=== PATIENT | male | born 1955 | race Caucasian/White ===

== ENCOUNTER 2016-08-08 16:44 | Emergency (ER) | payer SELFPAY ==
[2016-08-08] MEDS ORDERED: HYDROcodone/Acetaminophen 10/325 mg Tablet ONE (17:21)
[2016-08-08] MEDS ORDERED: Indomethacin 25 mg Capsule ONE (17:27)
[2016-08-08] MEDS ORDERED: predniSONE 20 MG TAB ONE (17:27)
[2016-08-08 17:43] LABS: #Basophils 0.1 thou/uL (0.0-0.2); #Eosinphils 0.1 thou/uL (0.0-0.7); #Lymphocytes 2.7 thou/uL (1.20-3.40); #Monocytes 0.9 thou/uL (0.11-0.59); #Neutrophils 4.5 thou/uL (1.40-6.50); %Basophils 1.3 % (0.0-1.0); %Eosinophils 0.9 % (0.0-10.0); %Lymphocytes 32.2 % (21.0-51.0); %Monocytes 11.2 % (0.0-10.0); %Neutrophils 54.3 % (42.0-75.0); Mean Corpuscular HGB CONC 33.8 g/dL (32.0-36.0); Mean Corpuscular Hemoglobin 31.6 pg (27.0-31.0); Mean Corpuscular Volume 93.3 fl (80.0-94.0); Mean Platelet Volume 7.7 fL (7.4-10.4); Platelet Count 221 thou/uL (130-400); RBC Distribution Width 11.7 % (11.5-14.5); Red Blood Cell (RBC) Count 4.43 mill/uL (4.70-6.10); White Blood Cell (WBC) Count 8.3 thou/uL (4.8-10.8)
[2016-08-08 17:59] LABS: CRP (Inflammatory) 2.53 mg/dL (= or < 0.5); Uric Acid 5.4 mg/dL (3.5-7.2)
--- NOTE | 2016-08-08 19:00 | RAD ---
LEFT ELBOW FOUR VIEWS 08/08/16 HISTORY: Joint pain. There is soft tissue prominence in the region of the olecranon. There is soft tissue ossification ne ar the tip of the olecranon and bony cystic change. This would suggest chronic olecranon bursitis an d raises the possibility of chronic osteomyelitis. Clinical correlation is recommended. IMPRESSION: Chronic appearing destructive changes involving the olecranon near the olecranon bursa. 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 An underlying osteomyelitis is not excluded. Clinical correlation is recommended. POS: MAXIMO
== END 2016-08-08 18:43 | disposition home or self-care (01) ==
LOC: MADERS 16:44
DX: M10.9 Gout, unspecified (principal); I10 Essential (primary) hypertension; Z79.899 Other long term (current) drug therapy
CPT/HCPCS: 36415; 84550; 85025; 86140; J7506

== ENCOUNTER 2016-08-29 13:27 | Outpatient (CLI) | payer OTHER ==
[2016-08-29 13:48] LABS: #Basophils 0.1 thou/uL (0.0-0.2); #Eosinphils 0.1 thou/uL (0.0-0.7); #Lymphocytes 2.5 thou/uL (1.20-3.40); #Monocytes 0.8 thou/uL (0.11-0.59); #Neutrophils 4.4 thou/uL (1.40-6.50); %Basophils 1.2 % (0.0-1.0); %Eosinophils 1.3 % (0.0-10.0); %Lymphocytes 31.4 % (21.0-51.0); %Monocytes 10.4 % (0.0-10.0); %Neutrophils 55.6 % (42.0-75.0); Hemoglobin 15.6 g/dL (14.0-18.0); Mean Corpuscular HGB CONC 32.6 g/dL (32.0-36.0); Mean Corpuscular Hemoglobin 31.2 pg (27.0-31.0); Mean Corpuscular Volume 95.9 fl (80.0-94.0); Mean Platelet Volume 8.8 fL (7.4-10.4); Platelet Count 188 thou/uL (130-400); RBC Distribution Width 12.4 % (11.5-14.5); Red Blood Cell (RBC) Count 5.01 mill/uL (4.70-6.10); White Blood Cell (WBC) Count 7.8 thou/uL (4.8-10.8)
[2016-08-29 14:05] LABS: ALT (SGPT) 33 U/L (8-55); AST (SGOT) 29 U/L (5-34); Albumin 4.1 g/dL (3.5-5.0); Alkaline Phosphatase 82 U/L (40-150); Anion Gap 17 mmol/L (10-20); BUN (Urea Nitrogen) 19 mg/dL (8.4-25.7); Bilirubin, Total 0.6 mg/dL (0.2-1.2); Calc. Creatinine Clearance 0 mL/min (70-130); Calcium 9.1 mg/dL (7.8-10.44); Carbon Dioxide 20 mmol/L (22-29); Chloride 106 mmol/L (98-107); Estimated GFR-MDRD 31; Globulin 3.5 g/dL (2.4-3.5); Glucose 136 mg/dL (70-105); Potassium 4.5 mmol/L (3.5-5.1); Protein, Total 7.6 g/dL (6.0-8.3); Sodium 138 mmol/L (136-145)
== END 2016-08-29 13:28 | disposition home or self-care (01) ==
LOC: MADLAB 13:27
DX: Z00.00 Encounter for general adult medical examination without abnormal findings (principal)
CPT/HCPCS: 36415; 80050

== ENCOUNTER 2016-08-29 18:44 | Emergency (ER) | payer SELFPAY ==
[~2016-08-29 18:44] MED LIST: Sodium Chloride 0.9% 1,000 ML BAG ONE
[2016-08-29 19:46] LABS: #Basophils 0.2 thou/uL (0.0-0.2); #Eosinphils 0.2 thou/uL (0.0-0.7); #Lymphocytes 3.5 thou/uL (1.20-3.40); #Monocytes 0.8 thou/uL (0.11-0.59); #Neutrophils 4.8 thou/uL (1.40-6.50); %Basophils 1.6 % (0.0-1.0); %Eosinophils 1.9 % (0.0-10.0); %Lymphocytes 36.8 % (21.0-51.0); %Monocytes 8.3 % (0.0-10.0); %Neutrophils 51.3 % (42.0-75.0); Hemoglobin 16.3 g/dL (14.0-18.0); Mean Corpuscular HGB CONC 34.6 g/dL (32.0-36.0); Mean Corpuscular Hemoglobin 32.9 pg (27.0-31.0); Platelet Count 193 thou/uL (130-400); RBC Distribution Width 12.5 % (11.5-14.5); Red Blood Cell (RBC) Count 4.94 mill/uL (4.70-6.10); White Blood Cell (WBC) Count 9.4 thou/uL (4.8-10.8)
[2016-08-29 20:01] LABS: ALT (SGPT) 35 U/L (8-55); AST (SGOT) 30 U/L (5-34); Albumin 4.1 g/dL (3.5-5.0); Alkaline Phosphatase 82 U/L (40-150); Anion Gap 19 mmol/L (10-20); BUN (Urea Nitrogen) 25 mg/dL (8.4-25.7); Bilirubin, Total 0.5 mg/dL (0.2-1.2); Calc. Creatinine Clearance 0 mL/min (70-130); Calcium 9.3 mg/dL (7.8-10.44); Carbon Dioxide 20 mmol/L (22-29); Chloride 104 mmol/L (98-107); Estimated GFR-MDRD 44; Globulin 3.6 g/dL (2.4-3.5); Glucose 141 mg/dL (70-105); Potassium 4.5 mmol/L (3.5-5.1); Protein, Total 7.7 g/dL (6.0-8.3); Sodium 138 mmol/L (136-145)
[2016-08-29 20:05] LABS: Clarity Clear (Clear)
[2016-08-29 20:06] LABS: Bacteria/HPF Rare-Few HPF (None Seen); Bilirubin Negative (Negative); Blood, Urine Negative (Negative); Glucose, Urine (Dipstick) Negative (Negative); Leukocyte Negative (Negative); Nitrite Negative (Negative); Protein, Urine (Dipstick) Negative (Neg-Trace); RBC/HPF 0-3 HPF (0-3); Squamous Epithelial 0-3 HPF (0-3); Urobilinogen 0.2 mg/dL (0.2-1.0); WBC/HPF None Seen HPF (0-3)
== END 2016-08-29 21:35 | disposition home or self-care (01) ==
LOC: MADERS 18:44
DX: E86.0 Dehydration (principal); M10.9 Gout, unspecified; I10 Essential (primary) hypertension; Z79.899 Other long term (current) drug therapy
CPT/HCPCS: 81001; 83880; 87086; 96360; J7050